=== PATIENT | male | born 1985 | race Caucasian/White ===

== ENCOUNTER → 2017-01-12 | Outpatient (CLI) | payer MEDICARE, OTHER ==
[2017-01-12 19:04] LABS: FOLATE > 20.00 ng/mL (>2.76)
[2017-01-14 07:12] LABS: VITAMIN D 25-HYDROXY 89.4 ng/mL (30.0-100.0)
[2017-01-14 09:42] LABS: ESTRADIOL 33.6 pg/mL (7.6-42.6)
== END ==
LOC: OD 16:25
PROVIDERS: ATTEND Psychiatry & Neurology Psychiatry
DX: F32.9 Major depressive disorder, single episode, unspecified (principal); Z13.79 Encounter for other screening for genetic and chromosomal anomalies
CPT/HCPCS: 36415; 81291; 82306; 82607; 82626; 82670; 82679; 82746

== ENCOUNTER → 2017-05-28 | Day surgery (SDC) | payer MEDICARE, OTHER ==
--- NOTE | 2017-05-28 14:38 | RADIOLOGY REPORT (SQ) ---
EXAM DESCRIPTION: ARTHRO SHOULDER INJECTION; FLUORO/NEEDLE PLACEMENT COMPLETED DATE/TIME: 05/28/2017 2:18 pm REASON FOR STUDY: SUPERIOR GLENOID LABRUM LESION OF UNSPEC SHOULDER (S43.439S) S43.439S SUPERIOR GL ENOID LABRUM LESION OF UNSP SHOULDER, SE COMPARISON: None. FLUOROSCOPY TIME: 31 seconds 1 digital radiographic image saved to PACS. LIMITATIONS: None. PROCEDURE: Procedure, risks, benefits and alternatives explained to patient who then gave written co nsent. The posterior left shoulder was marked and a time out was called for correct procedure verific ation. Posterior entry site marked using fluoroscopic guidance. Shoulder prepped and draped using s terile technique. Local anesthesia achieved using 7 mL of 1% lidocaine injection. 22 gauge spinal n eedle introduced into the joint space under direct fluoroscopic visualization. Non-ionic contrast ins tilled to confirm intra-articular position. Dilute gadolinium solution then injected. Needle removed and entry site covered with sterile bandage. No immediate complications noted. TECHNIQUE: Digital images acquired during fluoroscopy and stored on PACS. Patient immediately take n to the MR suite for additional imaging. INJECTION LOCATION: Posterior left shoulder. CONTRAST TYPE AND AMOUNT: 0.5 mL of Isovue-300 was injected to confirm intra-articular needle placeme nt followed by 9 mL of dilute gadolinium for MR arthrogram IMPRESSION: SUCCESSFUL NEEDLE PLACEMENT AND INJECTION FOR LEFT SHOULDER MR ARTHROGRAM USING POSTERIO R APPROACH. COMMENT: Quality ID [id number]: Final reports for procedures using fluoroscopy that document radiation exp osure indices, or exposure time and number of fluorographic images (if radiation exposure indices are not available) TECHNICAL DOCUMENTATION: JOB ID: [id number] [employer]- All Rights Reserved
--- NOTE | 2017-05-28 16:40 | RADIOLOGY REPORT (SQ) ---
EXAM DESCRIPTION: MRI LT UPPER JOINT WITH COMPLETED DATE/TIME: 05/28/2017 3:17 pm REASON FOR STUDY: SUPERIOR GLENOID LABRUM LESION OF UNSPEC SHOULDER (S43.439S) S43.439S SUPERIOR GL ENOID LABRUM LESION OF UNSP SHOULDER, SE COMPARISON: Arthrogram same date TECHNIQUE: Right shoulder images acquired and stored on PACS. Oblique coronal, oblique sagittal, and axial imaging to include fat sensitive sequences as T1, water sensitive sequences as FST2/STIR, and contrast sensitive sequences as FST1. LIMITATIONS: None. FINDINGS: JOINT DISTENTION: Adequate distention for interpretation. Please note that there was a ti ght capsule during injection, and some at the intra-articular contrast extravasated along the tissue planes between the infraspinatus muscle and joint capsule BONE MARROW AND CORTEX: Normal. No significant osteophytes. No edema or defects. AC JOINT: Type II acromion. Minimal AC joint arthropathy. GLENOHUMERAL JOINT: No subluxation or dislocation. No focal chondral defects or reactive bone changes . ROTATOR CUFF: Very mild tendinopathy along the undersurface of the distal infraspinatus tendon sagitt al image 5. Remainder of the rotator cuff is intact. LABRUM AND BICEPS LABRAL COMPLEX: Intra-articular long head biceps tendon high in signal from tendino mita. Rotator interval grossly intact. Anterior labrum intact. However, diffusely, the superior l abrum at the long head biceps tendon attachment is abnormal with increased signal, extending througho ut the posterior labral. No definite paralabral cyst. ADJACENT SOFT TISSUES: Small axillary recess of the joint, suspect adhesive capsulitis OTHER: No other significant finding. IMPRESSION: Diffusely abnormal posterior labrum Superior labral tear at the long head biceps tendon insertion Intra-articular long head biceps tendinopathy Suspect some adhesive capsulitis TECHNICAL DOCUMENTATION: JOB ID: [id number] [employer]- All Rights Reserved
== END ==
LOC: RAD 13:20
PROVIDERS: ATTEND Family Medicine
PROC: BP08ZZZ Plain Radiography of Right Shoulder (ICD-10-PCS; principal; 2017-05-28)
DX: S43.4 Sprain of shoulder joint (principal); X58.XXXS Exposure to other specified factors, sequela; M19.011 Primary osteoarthritis, right shoulder
CPT/HCPCS: 73222; 77002; 23350; A9576

== ENCOUNTER → 2017-05-31 | Day surgery (SDC) | payer MEDICARE, OTHER ==
[~2017-05-31] MED LIST: LIDOCAINE 1% INJ-PF (10 MG/ML) 30 ML SDV ONE
--- NOTE | 2017-05-31 14:50 | RADIOLOGY REPORT (SQ) ---
EXAM DESCRIPTION: MRI RT UPPER JOINT WITH COMPLETED DATE/TIME: 05/31/2017 2:23 pm REASON FOR STUDY: S43.439S SUPERIOR GLENOLD LABRUM LESION OF UNSPECIFIED SHOULDER S43.439S SUPERIOR GLENOID LABRUM LESION OF UNSP SHOULDER, SE COMPARISON: Right shoulder arthrogram same date TECHNIQUE: Right shoulder images acquired and stored on PACS. Oblique coronal, oblique sagittal, and axial imaging to include fat sensitive sequences as T1, water sensitive sequences as FST2/STIR, and contrast sensitive sequences as FST1. LIMITATIONS: None. FINDINGS: JOINT DISTENTION: Adequate distention for interpretation. No leakage of contrast into the subacromial/subdeltoid bursa BONE MARROW AND CORTEX: Normal. No significant osteophytes. No edema or defects. AC JOINT: Type 4 acromion. There is extensive edema in the distal clavicle and acromion, and fluid in the AC joint without AC joint widening. These findings are best shown on axial images 1-4, sagittal images 8-13, and coronal images 5-12. There is narrowing of the subacromial space on coronal image 9. GLENOHUMERAL JOINT: No subluxation or dislocation. No focal chondral defects or reactive bone changes . ROTATOR CUFF: There is tendinopathy along the undersurface of the supraspinatus tendon without full-t hickness tear. Contrast tracks along the infraspinatus tendon related to posterior shoulder graft ar throgram approach. No infraspinatus tendinopathy. Subscapularis intact. LABRUM AND BICEPS LABRAL COMPLEX: Intra-articular long head biceps tendon is high signal from tendino mita. Superior labral attachment is normal. Anterior labrum is intact. There is some high signal in the posterior labrum related to contrast injection. INFERIOR LABRAL COMPLEX: Bony glenoid and labrum intact. IGHL intact without thickening or tear. No p aralabral cysts. ADJACENT SOFT TISSUES: No masses or nodes. OTHER: No other significant finding. IMPRESSION: Advanced acromioclavicular joint arthropathy Undersurface tendinopathy distal supraspinatus tendon Intra-articular long head biceps tendinopathy TECHNICAL DOCUMENTATION: JOB ID: [id number] [employer]- All Rights Reserved
--- NOTE | 2017-05-31 14:51 | RADIOLOGY REPORT (SQ) ---
EXAM DESCRIPTION: ARTHRO SHOULDER INJECTION; FLUORO/NEEDLE PLACEMENT COMPLETED DATE/TIME: 05/31/2017 1:43 pm REASON FOR STUDY: S43.439S SUPERIOR GLENOLD LABRUM; S43.439S SUPERIOR GLENOLD LABRUM LESION OF UNSPE CIFIED SHOULDER S43.439S SUPERIOR GLENOID LABRUM LESION OF UNSP SHOULDER, SE COMPARISON: MRI same date FLUOROSCOPY TIME: 35 seconds 1 digital radiographic image saved to PACS. LIMITATIONS: None. PROCEDURE: Procedure, risks, benefits and alternatives explained to patient who then gave written co nsent. The posterior right shoulder was marked and a time out was called for correct procedure verifi cation. Posterior entry site marked using fluoroscopic guidance. Shoulder prepped and draped using sterile technique. Local anesthesia achieved using 6 mL of 1% lidocaine injection. 22 gauge spinal needle introduced into the joint space under direct fluoroscopic visualization. Non-ionic contrast in stilled to confirm intra-articular position. Dilute gadolinium solution then injected. Needle remove d and entry site covered with sterile bandage. No immediate complications noted. TECHNIQUE: Digital images acquired during fluoroscopy and stored on PACS. Patient immediately take n to the MR suite for additional imaging. INJECTION LOCATION: Posterior right glenohumeral joint CONTRAST TYPE AND AMOUNT: 2 mL of Isovue-300 injected to confirm intra-articular needle placement fol lowed by 9 mL of dilute gadolinium for MR arthrogram IMPRESSION: SUCCESSFUL NEEDLE PLACEMENT AND INJECTION FOR RIGHT SHOULDER MR ARTHROGRAM USING POSTERI OR APPROACH. COMMENT: Quality ID 145: Final reports for procedures using fluoroscopy that document radiation exp osure indices, or exposure time and number of fluorographic images (if radiation exposure indices are not available) TECHNICAL DOCUMENTATION: JOB ID: [id number] [employer]- All Rights Reserved
== END ==
LOC: RAD 12:54
PROVIDERS: ATTEND Family Medicine
PROC: BP08ZZZ Plain Radiography of Right Shoulder (ICD-10-PCS; principal; 2017-05-31)
DX: S43.4 Sprain of shoulder joint (principal); X58.XXXS Exposure to other specified factors, sequela
CPT/HCPCS: 73222; 77002; 23350; A9576; J3490